=== PATIENT | female | born 1975 | race African-American/Black ===

== ENCOUNTER 2023-08-17 15:05 | Emergency (ER) | payer OTHER | END 2023-08-17 15:59 | disposition home or self-care (01) | LOC: ERS 15:05 | DX: S46.911A Strain of unspecified muscle, fascia and tendon at shoulder and upper arm level, right arm, initial encounter (principal); V89.2XXA Person injured in unspecified motor-vehicle accident, traffic, initial encounter | CPT/HCPCS: 71045 ==